=== PATIENT | male | born 1975 | race Caucasian/White ===

== ENCOUNTER 2017-10-09 18:41 | Emergency (ER) | payer MEDICAID ==
[2017-10-09] MEDS ORDERED: Cephalexin 250 MG Cap ONE (19:10)
[2017-10-09] MEDS ORDERED: Silver Sulfadiazine 1% Crm 50 GM Tube TOP ONE (19:45)
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
[2017-10-09 21:11] VITALS: BP 158/72
== END 2017-10-09 20:00 | disposition home or self-care (01) ==
LOC: LB.ED 18:41
DX: T25.122A Burn of first degree of left foot, initial encounter (principal); T31.11 Burns involving 10-19% of body surface with 10-19% third degree burns; L03.116 Cellulitis of left lower limb
CPT/HCPCS: 99283; A9270-GY